=== PATIENT | female | born 1985 | race Caucasian/White ===

== ENCOUNTER 2017-10-22 16:31 | Emergency (ER) | payer BC ==
[~2017-10-22] VITALS: Ht 162.6 cm; Wt 54.0 kg
[2017-10-22 16:32] VITALS: BP 129/80; PULSE 73; RESP 16; TEMP 97.8; O2SAT 100
--- NOTE | 2017-10-22 17:29 | PD ---
HPI Chief Complaint: Lump, Cyst, Hernia Time Seen by Provider: 16:59 Travel History International Travel<30 days: No Contact w/Intl Traveler<30days: No Traveled to known affect area: No History of Present Illness HPI 32-year-old female presents to the emergency Department with complaint of a Bartholin cyst since Monday and she has been being treated with doxycycline since Monday. Has history of Bartholin cysts since 2012. Denies fever, vomiting, dysuria, urinary frequency. Denies vaginal discharge, odor. Denies abdominal pain. Has been taking tramadol for pain management. Rates pain . Describes it as a throbbing sensation. Pain is constantly aggravated. We' ll be relieved with incision and drainage. Has no other medical complaints. Denies significant past medical history. No other modifying factors or associated signs and symptoms. PFSH Past Medical History ?: Unknown Social History Tobacco Use: No Allergies-Medications (Allergen,Severity, Reaction): Coded Allergies: No Known Allergies (Unverified , 10/22/17) Reported Meds & Prescriptions Reported Meds & Active Scripts Active Percocet (Oxycodone-Acetaminophen) 2.5-325 mg Tab 1 Tab PO Q4H PRN Bactrim DS (Sulfamethoxazole-Trimethoprim) 800-160 Mg Tab 1 Tab PO BID 10 Days Keflex (Cephalexin) 500 Mg Cap 500 Mg PO Q6H 10 Days Review of Systems Except as stated in HPI: all other systems reviewed are Neg Physical Exam Narrative GENERAL: Well-nourished, well-developed female patient, in no acute distress; afebrile, nontoxic-appearing SKIN: Warm and dry. HEAD: Atraumatic. Normocephalic. EYES: Pupils equal and round. No scleral icterus. No injection or drainage. ENT: Mucous membranes pink and moist. NECK: Trachea midline. No lymphadenopathy. CARDIOVASCULAR: Regular rate and rhythm. No murmur appreciated. RESPIRATORY: No accessory muscle use. Clear to auscultation. Breath sounds equal bilaterally. GASTROINTESTINAL: Abdomen soft, non-tender, nondistended. Bilateral pelvic region nontender to palpation. Hepatic and splenic margins not palpable. No guarding, rigidity, rebound tenderness. PELVIC: Exam done in the presence of a nurse. left labia majora with large palpable lump which extends into the inside of the vagina; with erythema noted to the lump on the inside of the vagina; labia minora is mildy edematous; with tenderness on palpation; without drainage noted. MUSCULOSKELETAL: No obvious deformities. No clubbing. No cyanosis. No edema. NEUROLOGICAL: Awake and alert. No obvious cranial nerve deficits. Motor grossly within normal limits. Normal speech. PSYCHIATRIC: Appropriate mood and affect; insight and judgment normal. Data Data Last Documented VS Vital Signs Date Time Temp Pulse Resp B/P (MAP) Pulse Ox O2 Delivery O2 Flow Rate FiO2 10/22/17 16:32 97.8 73 16 129/80 (96) 100 Room Air Orders Orders Lidocaine 1% Inj (Xylocaine 1% Inj) (10/22/17 17:30) Morphine Inj (Morphine Inj) (10/22/17 18:30) Ed Discharge Order (10/22/17 18:53) Wound Culture And Gram Stain (10/22/17 18:55) [facility] Medical Decision Making Medical Screen Exam Complete: Yes Emergency Medical Condition: Yes Medical Record Reviewed: Yes Differential Diagnosis Bartholin gland abscess, labial abscess, vaginal abscess Narrative Course 32-year-old female with a Bartholin gland abscess to the left of the vagina. She is afebrile and nontoxic-appearing. Currently taking doxycycline. Morphine ordered for pain. 1853: See Dr. Reed's note for drainage of the abscess. Keflex and Bactrim prescribed for home. Instructed patient to stop doxycycline. Wound culture pending. Instructed patient to follow up with gynecology. Instructed patient to follow up with primary care provider. Patient verbalizes understanding and agreement with treatment plan. Patient is medically cleared and stable for discharge. Discussed reasons to return to the emergency department. Patient agrees with treatment plan. The patients vital signs are stable and the patient is stable for outpatient follow-up and treatment. Patient discharged home, stable and in no acute distress. 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: [employer]maker Primary Care Physician Patient Instructions: Bartholin Cyst (ED), Excision of a Bartholin's Cyst (DC) , General Instructions Departure Forms: Tests/Procedures, Work Release Enter return to work date: Oct 25, 2017 Additional Instructions: Complete full course of antibiotics Warm compresses to the affected area Keep area clean and dry Ibuprofen or Tylenol as directed and as needed for pain and inflammation Follow-up with primary care provider Return to emergency department immediately with worsening of symptoms Med/Other Pt SpecificInfo: Prescription(s) given, Med Stopped Scripts Oxycodone-Acetaminophen (Percocet) 2.5-325 mg Tab 1 TAB PO Q4H Y for PAIN SCALE 1 TO 10, #12 TAB 0 Refills Prov: Ethel Stewart 10/22/17 Sulfamethoxazole-Trimethoprim (Bactrim DS) 800-160 Mg Tab 1 TAB PO BID for Infection for 10 Days, #20 TAB 0 Refills Prov: Ethel Stewart 10/22/17 Cephalexin (Keflex) 500 Mg Cap 500 MG PO Q6H for Infection for 10 Days, #40 CAP 0 Refills Prov: Ethel Stewart 10/22/17 Disposition: 01 DISCHARGE HOME Condition: Stable Ethel Stewart Oct 22, 2017 17:29
[2017-10-22] MEDS ORDERED: LIDOCAINE HCL 1% 20 ML VIAL INFIL ONE (17:30)
[2017-10-22] MEDS ORDERED: BACT800T5 PO (18:02)
[2017-10-22] MEDS ORDERED: CEPH-460 PO (18:02)
[2017-10-22] MEDS ORDERED: MORPHINE SULFATE 2 MG/ML INJ IM ONE (18:30)
[2017-10-22] MEDS ORDERED: PERC2.5T PO (18:55)
[2017-10-22] MEDS ORDERED: oxyCODONE/ACETAMINOPHEN 5 MG/325 MG TAB PO ONE (19:00)
[2017-10-22] MEDS ORDERED: CEPHALEXIN MONOHYDRATE 500 MG CAP PO ONE (19:15)
[2017-10-22] MEDS ORDERED: SULFAMETHOXAZOLE-TRIMETHOPRIM DS 800-160 MG TAB PO ONE (19:15)
--- NOTE | 2017-10-22 19:18 | PD ---
Data Data Last Documented VS Vital Signs Date Time Temp Pulse Resp B/P (MAP) Pulse Ox O2 Delivery O2 Flow Rate FiO2 10/22/17 16:32 97.8 73 16 129/80 (96) 100 Room Air Orders Orders Lidocaine 1% Inj (Xylocaine 1% Inj) (10/22/17 17:30) Morphine Inj (Morphine Inj) (10/22/17 18:30) Ed Discharge Order (10/22/17 18:53) Wound Culture And Gram Stain (10/22/17 18:55) [facility] Medical Record Reviewed: Yes Supervised Visit with TITI: Yes Narrative Course I, Dr. Reed, have reviewed the advance practice practitioner's documentation and am in agreement, met with the patient face to face, made the diagnosis, and the medical decision making was done by me. *My assessment and Findings: Left sided bartholin's gland abscess - abscess was I&D after lidocaine was 2ml of injected to area. An 18 gauge needle was introduced and 10cc of purulent pus was drained from abscess. Patient tolerated procedure well Procedures Procedure Narrative Left sided bartholin's gland abscess INCISION AND DRAINAGE OF ABSCESS: The area was prepped and was sterilely draped. A subcutaneous wheal of 1 % Xylocaine with a total number 2 mL was used to anesthetize the area properly. An 18 gauge needle was used to I&D abscess. Cultures were obtained. Patient advised to have abscess rechecked in 48 hours. 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: [employer] Primary Care Physician Patient Instructions: General Instructions, Excision of a Bartholin's Cyst (DC) , Bartholin Cyst (ED) Departure Forms: Work Release, Enter return to work date: Tests/Procedures Additional Instruction: Complete full course of antibiotics Warm compresses to the affected area Keep area clean and dry Ibuprofen or Tylenol as directed and as needed for pain and inflammation Follow-up with primary care provider Return to emergency department immediately with worsening of symptoms Return to ER in 48 hours for wound check Return to ER if symptoms worsen or progress Scripts Oxycodone-Acetaminophen (Percocet) 2.5-325 mg Tab 1 TAB PO Q4H Y for PAIN SCALE 1 TO 10, #12 TAB 0 Refills Prov: Ethel Stewart 10/22/17 Sulfamethoxazole-Trimethoprim (Bactrim DS) 800-160 Mg Tab 1 TAB PO BID for Infection for 10 Days, #20 TAB 0 Refills Prov: Ethel Stewart [employer]USB[employer] PROF[employer] 10/22/17 Cephalexin (Keflex) 500 Mg Cap 500 MG PO Q6H for Infection for 10 Days, #40 CAP 0 Refills Prov: Ethel Stewart [employer]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
== END 2017-10-22 20:17 | disposition home or self-care (01) ==
LOC: NEPD 16:31
DX: N75.1 Abscess of Bartholin's gland (principal); Z79.899 Other long term (current) drug therapy
CPT/HCPCS: 56420; 86403; 87070; 96372; 99284; J2270; 87205